=== PATIENT | male | born 1965 | race Caucasian/White ===

== ENCOUNTER 2019-03-24 20:52 | Emergency (ER) | payer BC ==
--- NOTE | 2019-03-24 21:05 | EDM.PDOC ---
ED HPI GENERAL MEDICAL PROBLEM - General Chief Complaint: Laceration Stated Complaint: PT CUT TOE ON HIS LT FOOT Time Seen by Provider: 03/24/19 21:02 Source of Information: Reports: Patient History Limitations: Reports: No Limitations - History of Present Illness INITIAL COMMENTS - FREE TEXT/NARRATIVE: HISTORY AND PHYSICAL: History of present illness: Patient is a 53-year-old male presents to the ED today with concern of a toe laceration occurred just prior to arrival to the ED. Patient states he was playing on a treadmill with a grandchild when he had caught his toe on the treadmill. Patient states is not up-to-date on his tetanus vaccine. Patient states he has full range of motion of all digits on the toe and sensation. Patient denies any prior injury or trauma to the toe. Patient denies any other symptoms at this time. Patient denies fever, chills, chest pain, shortness of breath, or cough. Denies headache, neck stiff ness, change in vision, syncope, or near syncope. Denies nausea, vomiting, abdominal pain, diarrhea, constipation, or dysuria. Has not noted any blood in urine or stool. Patient has been eating and drinking appropriately. Review of systems: As per history of present illness and below otherwise all systems reviewed and negative. Past medical history: As per history of present illness and as reviewed below otherwise noncontributory. Surgical history: As per history of present illness and as reviewed below otherwise noncontributory. Social history: See social history for further information Family history: As per history of present illness and as reviewed below otherwise noncontributory. Physical exam: General: Patient is alert, oriented, and in no acute distress. Patient sitting comfortably on exam table. HEENT: Atraumatic, normocephalic, pupils equal and reactive bilaterally, negative for conjunctival pallor or scleral icterus, mucous membranes moist, TMs normal bilaterally, throat clear, neck supple, nontender, trachea midline. No drooling or trismus noted. No meningeal signs. No hot potato voice noted. Lungs: Clear to auscultation, breath sounds equal bilaterally, chest nontender. Heart: S1S2, regular rate and rhythm without overt murmur Abdomen: Soft, nondistended, nontender. Negative for masses or hepatosplenomegaly. Negative for costovertebral tenderness. Pelvis: Stable nontender. Genitourinary: Deferred. Rectal: Deferred. Skin: Intact, warm, dry. No lesions or rashes noted. Extremities: Negative for cords or calf pain. Neurovascular unremarkable. There is a 2 cm superficial laceration on the superior fifth digit of the left foot with minimal blood loss. Patient has full range of motion of all digits on the foot. Dorsalis pedis and posterior tibial pulses are grossly intact with capillary refill less than 2 seconds. Neuro: Awake, alert, oriented. Cranial nerves II through XII unremarkable. Cerebellum unremarkable. Motor and sensory unremarkable throughout. Exam nonfocal. Notes: Discussed the importance for follow-up with the primary care provider. Voices understanding and is agreeable to plan of care. Denies any further questions or concerns at this time. Diagnostics: Toe XR, left Therapeutics: Lidocaine, Sutures, Tdap, bacitracin with sterile dressing Prescription: None Impression: 5th digit laceration, left Plan: 1. Keep the area clean and dry. Continue to monitor for signs of infection as discussed. Sutures to be removed in 7-10 days. 2. Tylenol and/or ibuprofen as directed and as needed for pain management and discomfort. 3. Please follow-up with your primary care provider as discussed. Return to the ED as needed and as discussed. Definitive disposition and diagnosis as appropriate pending reevaluation and review of above. - Related Data Allergies Allergy/AdvReac Type Severity Reaction Status Date / Time No Known Allergies Allergy Verified 03/24/19 21:06 Home Meds: Home Meds . [No Known Home Meds] 03/24/19 [History] ED ROS GENERAL - Review of Systems Review Of Systems: ROS reveals no pertinent complaints other than HPI. ED EXAM, SKIN/RASH Exam: See Below (See dictation) ED SKIN PROCEDURES - Laceration/Wound Repair Left Digit - 5th (Baby) Lac/Wound length In cm: 2 Appearance: Superficial, Linear, Clean Distal NVT: Neuro & Vascular Intact, No Tendon Injury Anesthetic Type: Local Local Anesthesia - Lidocaine (Xylocaine): 1% Plain Local Anesthetic Volume: 5cc Skin Prep: Chlorhexidine (Hibiciens) Saline Irrigation (cc's): 30 Exploration/Debridement/Repair: Wound Explored, In a Bloodless Field, Explored to Base, No Foreign Material Found Closed with: Sutures Suture Size: 4-0 # of Sutures: 3 Suture Type: Silk, Interrupted Drain Placement: No Sterile Dressing Applied: Nurse Tetanus Status Addressed: Yes Complications: No Course - Vital Signs Last Recorded V/S: Last Vital Signs Temp 36.1 C 03/24/19 21:02 Pulse 80 03/24/19 21:02 Resp 18 03/24/19 21:02 BP 147/79 H 03/24/19 21:02 Pulse Ox 98 03/24/19 21:02 - Orders/Labs/Meds Orders: Active Orders 24 hr Category Date Time Status Vaccines to be Administered [RC] PER UNIT ROUTINE Care 03/24/19 21:06 Active Toes Fifth Digit Lt T4 [CR] Stat Exams 03/24/19 21:06 Taken Meds: Medications Discontinued Medications Generic Name Dose Route Start Last Admin Trade Name Freq PRN Reason Stop Dose Admin Diphtheria/Tetanus/Acell Pertussis 0.5 ml 03/24/19 21:06 03/24/19 21:12 Adacel IM 03/24/19 21:07 0.5 ml .ONCE ONE Administration Lidocaine HCl 5 ml 03/24/19 21:06 03/24/19 21:14 Xylocaine-Mpf 1% INJECT 03/24/19 21:07 5 ml ONETIME ONE Administration Departure - Departure Time of Disposition: 21:37 Disposition: Home, Self-Care 01 Clinical Impression: Toe laceration Qualifiers: Encounter type: initial encounter Toe: lesser toe Damage to nail status: without damage Foreign body presence: without foreign body Laterality: left Qualified Code(s): S91.115A - Laceration without foreign body of left lesser toe (s) without damage to nail, initial encounter - Discharge Information Instructions: Laceration Care, Adult, [id number] Referrals: PCP,None [Primary Care Provider] - Forms: ED Department Discharge Additional Instructions: The following information is given to patients seen in the emergency department who are being discharged to home. This information is to outline your options for follow-up care. We provide all patients seen in our emergency department with a follow-up referral. The need for follow-up, as well as the timing and circumstances, are variable depending upon the specifics of your emergency department visit. If you don't have a primary care physician on staff, we will provide you with a referral. We always advise you to contact your personal physician following an emergency department visit to inform them of the circumstance of the visit and for follow-up with them and/or the need for any referrals to a consulting specialist. The emergency department will also refer you to a specialist when appropriate. This referral assures that you have the opportunity for follow-up care with a specialist. All of these measure are taken in an effort to provide you with optimal care, which includes your follow-up. Under all circumstances we always encourage you to contact your private physician who remains a resource for coordinating your care. When calling for follow-up care, please make the office aware that this follow-up is from your recent emergency room visit. If for any reason you are refused follow-up, please contact the [facility] Emergency Department at and asked to speak to the emergency department charge nurse. [facility] [address] [place] [address] [id number] [address] [id number] 1. Keep the area clean and dry. Continue to monitor for signs of infection as discussed. Sutures to be removed in 7-10 days. 2. Tylenol and/or ibuprofen as directed and as needed for pain management and discomfort. 3. Please follow-up with your primary care provider as discussed. Return to the ED as needed and as discussed. - My Orders Last 24 Hours: My Active Orders 03/24/19 21:06 Vaccines to be Administered [RC] PER UNIT ROUTINE Toes Fifth Digit Lt T4 [CR] Stat - Assessment/Plan Last 24 Hours: My Active Orders 03/24/19 21:06 Vaccines to be Administered [RC] PER UNIT ROUTINE Toes Fifth Digit Lt T4 [CR] Stat
[2019-03-24] MEDS ORDERED: Diphtheria,Pertussis(Acell),Tetanus Vaccine 0.5 ML Syringe IM ONE (21:06)
[2019-03-24] MEDS ORDERED: Bacitracin Oint 1 GM U/D Packet TOP ONE (21:32)
--- NOTE | 2019-03-24 21:46 | CR ---
TECHNIQUE: Three views of the left 5th toe. INDICATION: Toe laceration. FINDINGS: There is a laceration in the mid left 5th toe. No acute fracture, dislocation, or radiopaque foreign body. Dictated by Klaus Coruch MD @ 03/24/2019 9:44:42 PM Dictated by: Klaus Crouch MD @ 03/24/2019 21:44:48 (Electronically Signed)
== END 2019-03-24 21:50 | disposition home or self-care (01) ==
LOC: MW.ED 20:52
DX: S91.115A Laceration without foreign body of left lesser toe(s) without damage to nail, initial encounter (principal); Z23 Encounter for immunization; W22.8XXA Striking against or struck by other objects, initial encounter; Y93.A1 Activity, exercise machines primarily for cardiorespiratory conditioning; Y92.9 Unspecified place or not applicable
CPT/HCPCS: 12001; 73660; 90471; 90715; 99283; J2001